=== PATIENT | female | born 1990 | race Caucasian/White ===

== ENCOUNTER 2025-08-25 08:32 | Emergency (ER) | payer MEDICAID ==
[2025-08-25] MEDS: diphenhydrAMINE 50 MG/ML SDV IM ONE (09:21)
== END 2025-08-25 10:59 | disposition home or self-care (01) ==
LOC: JP.ED 08:32
DX: G43.909 Migraine, unspecified, not intractable, without status migrainosus (principal); Z79.899 Other long term (current) drug therapy
CPT/HCPCS: 96372; 99283; J1200; J1790